=== PATIENT | female | born 1945 | race American Indian/Alaskan Native ===

== ENCOUNTER 2016-05-25 20:29 | Emergency (ER) | payer MEDICARE ==
[2016-05-25 21:33] LABS: Basophils % (Auto) 0.6 % (0.0-1.8); Eosinophils % (Auto) 0.4 % (0.0-4.3); Hematocrit 33.1 % (30.3-42.9); Hemoglobin 10.9 gm/dl (10.1-14.3); Mean Corpuscular HGB Conc 33 % (30-34); Mean Corpuscular Hemoglobin 30 pg (28-32); Mean Corpuscular Volume 92 fl (79-97); Platelet Count 129 K/mm3 (140-440); Red Blood Count 3.58 M/mm3 (3.65-5.03); Red Cell Distribution Width 15.5 % (13.2-15.2); White Blood Count 5.4 K/mm3 (4.5-11.0)
[2016-05-25 22:28] LABS: Albumin 3.9 g/dL (3.9-5); Albumin/Globulin Ratio 1.6 %; BUN/Creatinine Ratio 21.42; Bilirubin,Total 0.2 mg/dL (0.1-1.2); Calcium 9.9 mg/dL (8.4-10.2); Chloride 109.6 mmol/L (98-107); Total Protein 6.3 g/dL (6.3-8.2)
[2016-05-26 00:04] LABS: Bilirubin,Urine NEG (Negative); Blood,Urine NEG (Negative); Ketones,Urine NEG (Negative); Leukocyte Esterase,Urine SM (Negative); Mucus,Urine FEW /HPF; Nitrite,Urine NEG (Negative); Protein,Urine <15 mg/dL mg/dL (Negative); Urobilinogen,Urine < 2.0 mg/dL (<2.0)
--- NOTE | 2016-05-26 00:22 | Cat Scan Report ---
FINAL REPORT EXAM: CT HEAD/BRAIN WO CON HISTORY: CONFUSION TECHNIQUE: CT brain without IV contrast. PRIORS: None FINDINGS: Mild atrophy. No hemorrhage, mass, mass effect, or midline shift. Normal basal cisterns. No hydrocephalus. No pathologic extra-axial fluid collection. No evidence of acute infarct. No skull fracture. IMPRESSION: 1. No acute finding.
--- NOTE | 2016-05-26 01:17 | Emergency Department Report ---
ED Medical Clearance HPI - General Chief complaint: Medical Clearance Stated complaint: LIGHTHEADED Time Seen by Provider: 05/26/16 00:53 Source: patient Mode of arrival: Wheelchair - History of Present Illness Initial comments: This is an energetic 71-year-old female who is brought in by family due to concern that there may be a medical problem. Since baseline is that she listens to TV to keep track of time. She apparently wasn't doing this today. She has still been taking her meals appropriately. She describes in general not drinking a lot of fluids as a baseline. She reports no problems with urination denies any specific pains at this time to me denies any headache. She describes a desire to just go back to her care facility at this time. Onset/Timin -: days(s) Place: home (care facility) Alledged Intoxication: No Compliant with Home Medications: Yes Traumatic Symptoms: denies traumatic injury Associated Symptoms: confusion Allergies/Adverse reactions: Allergies Allergy/AdvReac Type Severity Reaction Status Date / Time No Known Allergies Allergy Verified 05/25/16 20:46 ED Review of Systems ROS: Stated complaint: LIGHTHEADED Other details as noted in HPI Constitutional: denies: chills, fever Eyes: denies: eye pain, eye discharge, vision change ENT: denies: ear pain, throat pain Respiratory: denies: cough, shortness of breath, wheezing Cardiovascular: denies: chest pain, palpitations Endocrine: no symptoms reported Gastrointestinal: denies: abdominal pain, nausea, diarrhea Genitourinary: denies: urgency, dysuria, discharge Musculoskeletal: denies: back pain, joint swelling, arthralgia Skin: denies: rash, lesions Neurological: denies: headache, weakness, paresthesias Psychiatric: denies: anxiety, depression Hematological/Lymphatic: denies: easy bleeding, easy bruising ED Past Medical Hx - Past Medical History Previous Medical History?: Yes Hx Hypertension: Yes Hx Diabetes: Yes Hx Arthritis: Yes - Surgical History Past Surgical History?: Yes Hx Cholecystectomy: Yes Additional Surgical History: BACK / HYSTERECTOMY - Social History Smoking Status: Never Smoker ED Physical Exam - General Limitations: No Limitations General appearance: alert, in no apparent distress - Head Head exam: Present: atraumatic, normocephalic - Eye Eye exam: Present: normal appearance - ENT ENT exam: Present: mucous membranes moist - Neck Neck exam: Present: normal inspection - Respiratory Respiratory exam: Present: normal lung sounds bilaterally. Absent: respiratory distress - Cardiovascular Cardiovascular Exam: Present: regular rate, normal rhythm. Absent: systolic murmur, diastolic murmur, rubs, gallop - GI/Abdominal GI/Abdominal exam: Present: soft, normal bowel sounds - Extremities Exam Extremities exam: Present: normal inspection - Back Exam Back exam: Present: normal inspection - Neurological Exam Neurological exam: Present: alert, oriented X3, other (moves all extremities spontaneously.) - Psychiatric Psychiatric exam: Present: normal affect, normal mood - Skin Skin exam: Present: warm, dry, intact, normal color. Absent: rash ED Course Vital Signs 05/25/16 20:48 Temperature 97.9 F Pulse Rate 82 Respiratory 20 Rate Blood Pressure 105/65 O2 Sat by Pulse 96 Oximetry - Reevaluation(s) Reevaluation #1: 05/26/16 02:33 Blood investigations were done here demonstrating mild hyper nature uremia and hypercholesteremia. Patient also done this has labs demonstrating mild renal insufficiency. I believe this is mostly due to dehydration. I did encourage the patient to be drinking more water.(Not surprising as it is a common ailment of older people. I feel the patient is safe for return back to her facility. Chest x-ray demonstrates no sign of infiltrative process or acute process. Urinalysis equally demonstrates no sign of infection. CT brain was read out as negative study. Patient's vital signs are's appropriate care she desires to go home. I do not see a reason to proceed with any further studies at this time. ED Medical Decision Making - Lab Data Result diagrams: 05/25/16 21:21 05/25/16 21:21 - EKG Data -: EKG Interpreted by Me EKG shows normal: sinus rhythm (79), axis (nml), ST-T waves (nml) Rate: normal - EKG Data When compared to previous EKG there are: no significant change Interpretation: normal EKG ED Disposition Clinical Impression: Chronic hypernatremia, Renal insufficiency, mild Disposition: DC/TX ANOTHER TYPE HEALTHCARE Is pt being admited?: No Does the pt Need Aspirin: No Condition: Stable Instructions: Hyperkalemia (ED) Additional Instructions: Drink more water. Take your medications as prescribed. Referrals: JAMES BARBOZA MD [Primary Care Provider] - 3-5 Days
[2016-05-26 03:22] VITALS: BP 145/78
== END 2016-05-26 03:21 | disposition other institution (70) ==
LOC: ED 20:29
DX: E87.0 Hyperosmolality and hypernatremia (principal); N28.9 Disorder of kidney and ureter, unspecified; I10 Essential (primary) hypertension; E11.9 Type 2 diabetes mellitus without complications; Z90.49 Acquired absence of other specified parts of digestive tract; Z90.710 Acquired absence of both cervix and uterus
CPT/HCPCS: 36415; 70450; 80053; 81001; 85025; 93005; 93010